=== PATIENT | male | born 1960 | race Caucasian/White ===

== ENCOUNTER 2020-08-16 19:49 | Emergency (ER) | payer OTHER ==
[~2020-08-16] VITALS: Ht 188 cm; Wt 120.0 kg
[2020-08-16] MEDS ORDERED: ASPIRIN 325MG EC TABLET PO ONE (20:45)
[2020-08-16 21:33] LABS: HEMATOCRIT. 45.3 % (42.0-52.0); MEAN CORPUSCULAR HEMOGLOBIN 27.4 pg (28.0-32.0); MEAN PLATELET VOLUME 9.6 fl (7.4-10.4); PLATELET 114 x1000/uL (130-400); RED BLOOD CELL COUNT 5.46 mill/uL (4.7-6.1); RED CELL DISTRIBUTION WIDTH 15.8 % (11.6-14.6)
[2020-08-16 21:37] LABS: CLARITY URINE CLEAR (CLEAR); COLOR URINE DARK YELLOW (YELLOW); KETONES URINE TRACE (NEGATIVE); LEUKOCYTE ESTERASE URINE NEGATIVE (NEGATIVE); NITRITE URINE NEGATIVE (NEGATIVE); OCCULT BLOOD URINE NEGATIVE (NEGATIVE); PH URINE 5.5 (4.5-8.0); PROTEIN URINE 1+ (NEGATIVE); SPECIFIC GRAVITY URINE 1.026 (1.005-1.030)
[2020-08-16 21:39] LABS: CHLORIDE 109 mEq/L (98-107)
[2020-08-16 23:31] LABS: PLATELET ESTIMATE SLIGHTLY DECREASED
[2020-08-17 00:10] LABS: D-DIMER 1.44 mg/L FEU (<0.50); INR 1.1; PROTHROMBIN TIME 11.7 sec (9.6-11.0)
[2020-08-17] MEDS ORDERED: IOHEXOL-350 100 ML BOTTLE ONE (02:56)
[2020-08-17 07:12] VITALS: BP 134/79
== END 2020-08-17 07:06 | disposition admitted as inpatient to this hospital (09) ==
LOC: ER 19:49
DX: R07.89 Other chest pain (principal); Z98.61 Coronary angioplasty status; I25.10 Atherosclerotic heart disease of native coronary artery without angina pectoris; F12.10 Cannabis abuse, uncomplicated; Z85.9 Personal history of malignant neoplasm, unspecified; E78.00 Pure hypercholesterolemia, unspecified; I10 Essential (primary) hypertension; Z20.822 Contact with and (suspected) exposure to COVID-19
CPT/HCPCS: 36415; 71045; 71275; 80053; 81003; 83690; 84484; 85025; 85379; 85610; 87426; 93005; 99285; Q9967

== ENCOUNTER 2022-12-27 17:51 | Emergency (ER) | payer MEDICAID, OTHER ==
[~2022-12-27] VITALS: Ht 188 cm; Wt 112.0 kg
[2022-12-27 18:42] VITALS: O2SAT 98
[2022-12-27] MEDS ORDERED: IBUP-2028 MT (19:07)
[2022-12-27] MEDS ORDERED: OFLO5DRO4 EACH EAR (19:07)
[2022-12-27 19:46] VITALS: BP 133/85; PULSE 65; RESP 18; TEMP 97.8
== END 2022-12-27 19:47 | disposition home or self-care (01) ==
LOC: ER 18:11
DX: H60.93 Unspecified otitis externa, bilateral (principal); E78.00 Pure hypercholesterolemia, unspecified; F12.90 Cannabis use, unspecified, uncomplicated; I25.2 Old myocardial infarction; I10 Essential (primary) hypertension; Z85.46 Personal history of malignant neoplasm of prostate; Z79.899 Other long term (current) drug therapy; Z98.890 Other specified postprocedural states
CPT/HCPCS: 99283